=== PATIENT | female | born 1960 | race Caucasian/White ===

== ENCOUNTER 2017-02-14 12:43 | Emergency (ER) | payer OTHER ==
[~2017-02-14 12:43] MED LIST: ACTIGALL300 MG PO; ALBUTEROL S3 ML/VIAL NEB; COLACE100 MG PO; COZAAR25 MG PO; DULCOLAX5 MG PO; HYDROCHLOROTHIA25 MG PO; K-DUR20 MEQ PO; LEXAPRO20 MG PO; LORCET HD 10-31 EACH PO; MAALOX ADVANCE355 ML PO; MS CONTIN15 MG PO; NEURONTIN300 MG PO; POLYETHYLENE GL17 GM PO; PROTONIX40 MG PO; REQUIP1 MG PO; TYLENOL325 MG PO; ZOFRAN4 MG PO
== END 2017-02-14 14:34 | disposition home or self-care (01) ==
LOC: ER 12:43
DX: G89.29 Other chronic pain (principal); M79.672 Pain in left foot; I10 Essential (primary) hypertension; Z86.711 Personal history of pulmonary embolism